=== PATIENT | male | born 1995 | race Caucasian/White ===

== ENCOUNTER 2024-01-12 00:16 | Emergency (ER) | payer OTHER, SELFPAY ==
[2024-01-12 00:21] VITALS: BP 132/79; PULSE 80; RESP 18; TEMP 36.8; O2SAT 96; BMI 25.1
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
== END 2024-01-12 01:01 | disposition home or self-care (01) ==
PROVIDERS: Emergency Provider Emergency Medicine
DX: Z04.1 Encounter for examination and observation following transport accident (principal); M54.12 Radiculopathy, cervical region
CPT/HCPCS: 99282; 99284